=== PATIENT | male | born 1940 | race Caucasian/White ===

== ENCOUNTER 2017-01-01 11:05 | Emergency (ER) | payer MEDICARE, OTHER ==
[~2017-01-01] VITALS: Ht 167.6 cm; Wt 71.7 kg
[2017-01-01] MEDS ORDERED: AMLODIPINE BESY PO (11:13)
[2017-01-01] MEDS ORDERED: VALACYCLOVIR H500 M1 PO (11:13)
[2017-01-01] MEDS ORDERED: ATORVASTATIN CA10 M1 PO (11:13)
--- NOTE | 2017-01-01 11:34 | Emergency Room Report ---
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 N Clinical Suspician of Infection? N Mental Status: 1 - Regular (Normal Baseline) Sepsis Risk:Low Sepsis Risk Have you (or family members/close friends) recently traveled outside the [place]? N If Yes, where/when: Have you had exposure to infectious disease within the past month? N TB? Other? Specify: i AGREE WITH THE ABOVE HX. 76 years old white male with history of hypertension and nephrolithiasis. He developed a nosebleed this morning that soaked 3 tissues with clots. He started feeling a headache and dizziness and was brought by the family. In the ER the RIGHT nose is packed with tissue with no active bleeding. His systolic blood pressure is 164. He is in no distress. Source patient, RN notes reviewed, family Exam Limitations no limitations ALLERGIES Coded Allergies: No Known Drug Allergies (12/06/15) Home Medications Reported Medications VALACYCLOVIR HCL (Valacyclovir) 500 MG PO DAILY #30 AMLODIPINE BESYLATE/BENAZEPRIL (Amlodipine-Benazepril 5-10 MG) 1 CAP PO DAILY #90 Atorvastatin Calcium 10 MG PO DAILY #90 History Medical History General CAD? No Angina: No PR: No Hypertension? Yes Hyperlipidemia? No CHF? No DVT? No PE? No COPD? No Asthma? No Anemia? No GERD? No Gastric ulcers? No GI Bleed? No Hernia? No Thyroid Problems? No Hypothyroidism? No CVA? No Seizures? No Diabetes? No Renal Insuffiency? No End Stage Renal Disease? No UTI? No Stones? Yes BPH? No GB Disease: No Nephritic Syndrome? No Asplenia? No Hepatitis? No Sickle Cell Disease? No Arthritis? No Migraines? No Cataracts? No Glaucoma? Yes MRSA? No HIV? No TB? No Anxiety? No Depression? No Cancer? No More? No Immunization Hx DT/Tetanus Unknown Surgical Hx Previous Surgery?Y LITHOTYRPSEY Family History Family Hx Diabetes No CAD Yes Hypertension Yes Hyperlipidemia No Cancer Yes TB No Social History Smoking Hx Smoker: Never Smoker Tobacco: No Alcohol Alcohol: No Review of Systems All Other Systems Reviewed and Negative Constitutional no symptoms reported Eyes no symptoms reported ENT see HPI. Respiratory no symptoms reported Cardiovascular no symptoms reported Gastrointestinal no symptoms reported Genitourinary no symptoms reported. Musculoskeletal no symptoms reported Skin no symptoms reported Psychiatric/Neurological no symptoms reported Physical Exam Vital Signs Vital Signs Date Time Temp Pulse Resp B/P Pulse O2 O2 Flow FiO2 Ox Delivery Rate 01/01 1223 79 137/74 01/01 1223 73 125/72 01/01 1223 72 18 134/74 96 01/01 1222 71 130/69 01/01 1109 97.9 78 18 162/91 97 - WBC >12,000 or <4,000 or 10% bands? 2 or more SIRS Criteria Met? B/P:162/91 MAP:114 Creatinine >2.0? UA output<0.5ml/kg/hr for 2 hrs? Platelet count >100,000? Lactate >2.0mmol/1? INR >1.2 or PTT > than 60 sec? Evidence of Organ Dysfunction? Provider documented clinical suspician of infection? N Sepsis Criteria Count: 0 Sepsis Risk: Low Sepsis Risk General Appearance normal appearance, WD/WN, no apparent distress Eye Exam - bilateral eye normal exam, bilateral eye PERRL, bilateral eye EOMI Ear, Nose, Throat hearing grossly normal, normal ENT inspection Neck normal inspection, non-tender, supple, full range of motion Respiratory Status Yes: trachea midline, chest symmetrical, non tender chest. No: respiratory distress. Lung Sounds bilateral: normal breath sounds, lungs clear. 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 No Results/Orders Laboratory Tests 01/01/17 1200: Sodium 142, Potassium 5.4 H, Chloride 108 H, Carbon Dioxide 30, BUN 20 H, Creatinine 1.4 H, Estimated Creat Clear 47 L, Estimated GFR (MDRD) 50, Glucose 107 H, Calcium 9.5, Total Bilirubin 0.5, AST 23, ALT 22, Alkaline Phosphatase 67, Total Protein 7.4, Albumin 4.0, Globulin 3.4 H, Albumin/Globulin Ratio 1.2, PT 11.4, INR 1.05, APTT 28.1, WBC 8.6, RBC 5.07, Hgb 14.9, Hct 46.2, MCV 91.1, RDW 12.6, Plt Count 199, MPV 9.3, Gran % 78.3, Gran # 6.7, Lymphocytes % 14.8, Monocytes % 4.5, Eosinophils % 2.0, Basophils % 0.3, Lymphocytes # 1.3, Monocytes # 0.4, Eosinophils # 0.2, Basophils # 0.0, PUBS MCHC 32.3, MCH 29.4 Current Medication Orders Sig/Roman Start time Last Medication Dose Route Stop Time Status Admin Sodium Chloride 1,000 ML .STK-MED ONE 01/01 1201 DC IV Sodium Chloride 1,000 ML .Q1H1M 01/01 1145 AC 01/01 IV 01/01 1245 1203 Sodium Chloride 10 ML PRN PRN 01/01 1145 AC IV 01/02 1140 Clonidine HCl 0.1 MG ONCE ONE 01/01 1130 DC 01/01 PO 01/01 1131 1126 Clonidine HCl 0 .STK-MED ONE 01/01 1124 DC .ROUTE Orders Procedure Date/time Status ORTHOSTATIC B/P 01/01 1144 Active PARTIAL THROMBOPLASTIN TIME 01/01 1140 Complete PROTHROMBIN TIME 01/01 1140 Complete CBC WITH AUTO DIFF 01/01 1140 Complete CHEM 12 PROFILE 01/01 1140 Complete Departure Departure Time of Disposition 1143 Disposition Still a Patient Clinical Impression Primary Impression: Anterior epistaxis Secondary Impressions: Hypertension Condition STABLE Referrals Benedict MCLAUGHLIN,Jim (Family) Additional Instructions The patient was negative orthostasis. I discussed with the daughter the discharge plan. 1- HOB 30 DEGREE. 2- DO NOT TIUCH THE NOSE OR DISTURB THE NEW SCAB, 3- CUT HIS NAILS SHORT. 4- NO ASPIRIN OR NSAIDS. 5- IF HE REBLEEDS APPLY PRESSURE. 6- USE CLONIDNINE AFTER CHECKING BP IN BOTH ARMS, IF SBP > 160 MMHG GIVE HIM ONE. 7- FOLLOW UP WITH DR HOLLEY YOU ALREADY KNOW HIM. 8- DRINK PLENTY OF FLUIDS. 9- RETURN IF NEEDED. Discharge Counseling Counseled pt/family regarding diagnosis, test results, medications/RX, home care, follow up needs ED Critical Care Critical Care No If Critical Care minutes are documented, the time involved in the performance of seperately reportable procedures was not counted toward critical care time documented. I directly delivered medical care to this critically ill and/or injured patient. Timely evaluation and treatment was necessary to address the significant organ system(s) dysfunction present in this patient. at [id number]
--- OUTSIDE RECORDS SUMMARY | 2017-01-01 11:42 | External Medical Summary Rpt | CCD ---
Demographics Preferred Language Croatian Marital Status Unknown Sabianism Affiliation Unknown Race Unknown Ethnic Group Unknown Author Author , ALFONSO BANEGAS Address Unknown Phone Immunization Unable to retrieve immunization data due to connection failure with Immunization Registry. Please try again later.
--- OUTSIDE RECORDS SUMMARY | 2017-01-01 11:42 | External Medical Summary Rpt | CCD ---
Author Author [employer] Organization [employer] Address Unknown Phone Unavailable Purpose Continuity of Care Document - through 2016
--- OUTSIDE RECORDS SUMMARY | 2017-01-01 11:42 | External Medical Summary Rpt | CCD ---
Demographics Preferred Language Georgian Marital Status Unknown Scientology Affiliation Unknown Race Unknown Ethnic Group Unknown Author Author , ALFONSO BANEGAS Address Unknown Phone Immunization Unable to retrieve immunization data due to connection failure with Immunization Registry. Please try again later.
--- OUTSIDE RECORDS SUMMARY | 2017-01-01 11:42 | External Medical Summary Rpt ---
Author Author [employer], [employer] Organization [employer] Address Unknown Phone Unavailable
--- OUTSIDE RECORDS SUMMARY | 2017-01-01 11:42 | External Medical Summary Rpt | CCD ---
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 L Comment: No growth (qualifier value) CC XXX NOTAP complet VC-aCnc 017 NOT ed 10:50 APPLICA BLE L
--- OUTSIDE RECORDS SUMMARY | 2017-01-01 11:42 | External Medical Summary Rpt | CCD ---
Author Author , ALFONSO BANEGAS Address Unknown Phone [email or web address] Purpose Continuity of Care Document - 08-19-2016 through 2016 Problems Code Diagnosis DOS Provider Status Z79.891 HUMAN INTELLIGENCE (CURRENT) USE OF OPIATE ANALGESIC Results Labs Lab Lab Date Result Refere Interp Status Commen Order Detail nces retati t Range on Bacteria Tiss Cult (08-19-2016 10:50) Bacteri [id number] complet a XXX 017 06 No ed Anaerob 10:50 growth e+Aerob (qualif e Cult ier value) SCT NG4 NO GROWTH DAY 4. L Comment: No growth (qualifier value) CC XXX NOTAP complet VC-aCnc 017 NOT ed 10:50 APPLICA BLE L
[2017-01-01 12:09] LABS: HEMOGLOBIN 14.9 g/dL (14.1-18.0); LYMPH # 1.3 K/mm3 (0.7-4.5); LYMPH % 14.8 % (10-50)
[2017-01-01] MEDS ORDERED: CLONIDINE HYDR0.1 MG PO (13:35)
[2017-01-01] MEDS ORDERED: AMOXICILLIN 25250 M2 PO (13:35)
[2017-01-01 15:18] VITALS: BP 170/97
[2017-01-06] MEDS ORDERED: COMBIGAN 0.2%-0.5 ML OP (12:30)
[2017-01-06] MEDS ORDERED: TRAVATAN Z 2.52.5 ML OP (12:30)
== END 2017-01-01 15:58 | disposition still patient (30) ==
LOC: ER 11:05
PROVIDERS: Emergency Medicine
DX: R04.0 Epistaxis (principal); I10 Essential (primary) hypertension